=== PATIENT | male | born 1995 | race Caucasian/White ===

== ENCOUNTER 2022-10-26 15:11 | Emergency (ER) | payer OTHER ==
[2022-10-26] MEDS ORDERED: Acetaminophen 500 MG TAB ONE (15:35)
== END 2022-10-26 17:15 ==
LOC: NAV ERS 15:11
DX: S06.9X1A Unspecified intracranial injury with loss of consciousness of 30 minutes or less, initial encounter (principal); S00.03XA Contusion of scalp, initial encounter; W18.09XA Striking against other object with subsequent fall, initial encounter; Y93.61 Activity, american tackle football; Z87.891 Personal history of nicotine dependence
CPT/HCPCS: 70450; 70486